=== PATIENT | female | born 1965 | race African-American/Black ===

== ENCOUNTER 2018-10-24 13:59 | Inpatient (IN) ==
[2018-10-24 15:26] LABS: BASO# 0.02 X1000 (0.0-0.2); BASO% 0.4 % (0.0-0.8); EOS% 3.7 % (0.0-10.0); HEMATOCRIT 33.7 % (37.0-47.0); HEMOGLOBIN 11.6 g/dL (12.0-16.0); LYMPH# 1.86 X1000 (1.2-3.4); LYMPH% 34.1 % (20.5-51.1); MCH 29.8 PG (27-31); MCHC 34.4 g/dL (33-37); MCV 86.6 FL (81-99); MONO% 7.3 % (1.7-9.3); MPV 9.6 FL (7.4-10.4); NEUT# 2.97 X1000 (1.4-6.5); NEUT% 54.5 % (42.2-75.2); PLT 226 X1000 (130-400); RBC 3.89 XMIL (4.2-5.4); RDW 14.3 % (11.5-14.5); WBC 5.45 X1000 (4.8-10.8)
[2018-10-24 15:51] LABS: AGAP 10; ALB/GLOB RATIO 1.5; ALBUMIN 4.1 g/dL (3.5-5.0); ALKALINE PHOSPHATASE 72 U/L (32-104); BUN 14 mg/dL (8-22); CALCIUM 9.1 mg/dL (8.8-10.2); CHLORIDE 104 mmol/L (98-107); COSMO 274; CREATININE 0.6 mg/dL (0.5-0.9); ESTIMATED GFR > 60; GLUCOSE 93 mg/dL (70-104); GOT 16 U/L (10-30); GPT 10 U/L (10-36); POTASSIUM 3.6 mmol/L (3.5-5.1); SODIUM 137 mmol/L (136-145); TCO2 23 mmol/L (25-35); TOTAL BILIRUBIN 0.28 mg/dL (0.20-1.00); TOTAL PROTEIN 6.9 g/dL (6.3-8.3)
[2018-10-24] MEDS: NS 1,000 ML IV SCH (20:00)
[2018-10-24 20:49] LABS: BASO# 0.02 X1000 (0.0-0.2); BASO% 0.4 % (0.0-0.8); HEMATOCRIT 32.8 % (37.0-47.0); HEMOGLOBIN 11.3 g/dL (12.0-16.0); LYMPH# 2.02 X1000 (1.2-3.4); LYMPH% 40.9 % (20.5-51.1); MCH 30.1 PG (27-31); MCHC 34.5 g/dL (33-37); MCV 87.2 FL (81-99); MONO# 0.39 X1000 (0.11-0.59); MONO% 7.9 % (1.7-9.3); MPV 9.4 FL (7.4-10.4); NEUT# 2.31 X1000 (1.4-6.5); NEUT% 46.8 % (42.2-75.2); PLT 213 X1000 (130-400); RBC 3.76 XMIL (4.2-5.4); RDW 14.3 % (11.5-14.5); WBC 4.94 X1000 (4.8-10.8)
--- NOTE | 2018-10-24 21:41 | Diag Imaging Result Doc PS360 ---
EXAM: CT ABD/PELVIS W/IV CONT ONLY INDICATION: Abdominal pain TECHNIQUE: This exam was performed using automated exposure control, adjustment of mA or kV according to patient size, and/or use of iterative reconstruction technique. COMPARISON: None. FINDINGS: There is minimal subsegmental atelectasis at the lung bases. The liver, gallbladder, spleen, pancreas, and adrenal glands are essentially unremarkable. There is a simple appearing cyst near the upper pole of the left kidney. The kidneys are unremarkable, otherwise. The urinary bladder is unremarkable. The reproductive tract is unremarkable as imaged. There is no evidence of appendicitis. There is no evidence of focal bowel wall thickening or bowel obstruction. The remainder of the GI tract is essentially unremarkable. No focal inflammatory changes, free abdominal gas, or free fluid is identified. There are severe degenerative changes at the right hip and there is milder lumbar spondylosis. There is no evidence of acute osseous abnormality. IMPRESSION: Incidental/nonacute findings detailed above. No definite acute pathology by CT. Electronically signed by Je Christy 10/24/2018 9:39 PM
--- NOTE | 2018-10-24 21:53 | HISTORY AND PHYSICAL ---
CHIEF COMPLAINT: Passing bleeding per rectum, a couple of times copious amount. HISTORY OF PRESENT ILLNESS: She is a 53-year-old female, was seen in my office this morning with bleeding per rectum. The patient had a prior history of back pain for evaluation. In the meantime, she started having hematochezia. Initial workup as an outpatient. She had a second episode of bleeding at home, and has been referred to Dr. Schmitz. She continues to have bleeding. Admitted directly for lower GI bleeding. The patient denies any dizziness or abdominal pain. PAST MEDICAL HISTORY: 1. Metabolic syndrome. 2. Pes planus. 3. Hypertension. 4. C5-C6 spondylosis. 5. Vitamin D deficiency. 6. Herniated disk on the right side. 7. Internal hemorrhoids. 8. Diverticulosis. PAST SURGICAL HISTORY: Right rotator cuff repair, tubal ligation. MEDICATIONS: Amlodipine 5 mg daily; Flexeril 10 daily; vitamin D 50,000 once a week; sulindac; Medrol Dosepak. Flexeril was given for chronic pain. ALLERGIES: Penicillin, and angioedema to SALOME inhibitors. SOCIAL HISTORY: , one child. Working at [employer]. Living in [place]. No smoking. No alcohol. FAMILY HISTORY: Father of CA at 72, mother of CA at 64. Brother had aneurysm of the brain. HEALTH MAINTENANCE: Influenza vaccine declined. Mammography 08/2018. DEXA scan 08/2015. Pap smear 09/2013. The patient had been seen by Dr. Evans, did 07/2017 colonoscopy with diverticulosis, internal hemorrhoids, 2 benign polyps. EGD has hiatal hernia with ulcers. REVIEW OF SYSTEMS: No dizziness. No headache. No vision problem. No earache. No sore throat. Neck: No goiter. No lymphadenopathy. No bruit.Cardiopulmonary: No chest pain, shortness of breath, PND or orthopnea. History of chronic neck pain. GI: No belly pain. Bleeding per rectum, painless bleeding. No swelling of feet. Chronic back pain. Neurologic: No focal symptoms or weakness. PHYSICAL EXAMINATION: GENERAL: Five feet 5 inches, 168 pounds. VITAL SIGNS: Temperature is 97.5 degrees, pulse 82, blood pressure 132/83. HEENT: Atraumatic, normocephalic. Dusky conjunctivae. TMs are normal. Nose and throat within normal limits. NECK: Supple. No lymphadenopathy. No goiter. CHEST: Bilateral air entry. HEART: Sounds are regular. ABDOMEN: Belly is soft, nontender. Good bowel sounds. No signs of peritonitis. EXTREMITIES: No peripheral edema or cyanosis. NEUROLOGIC: No obvious neurological deficits. LABORATORY DATA: CBC: White cell count 4.9, hematocrit 32.8, platelets 213,000. Sodium 137, potassium 3.6, chloride 104, BUN 14, creatinine 0.6, glucose 93. LFTs were normal. ASSESSMENT: A 53-year-old female admitted to the hospital with lower gastrointestinal bleeding. Previous esophagogastroduodenoscopy and colonoscopy have shown hiatal hernia, internal hemorrhoids and diverticulosis. PLAN: Serial hematocrit, orthostatic blood pressure. CT scan of the abdomen and pelvis. IV Nexium, and watch the symptoms and signs of GI bleeding. We will hold the NSAIDs, aspirin. GI consult technical agronomist with Dr. Evans. Will follow up. cc: Mayank Marcano MD
[2018-10-25] MEDS: NEXIUM IV SCH ×3 (05:05→21:47)
[2018-10-25 06:46] LABS: BASO# 0.01 X1000 (0.0-0.2); BASO% 0.3 % (0.0-0.8); EOS# 0.19 X1000 (0.0-0.7); EOS% 4.8 % (0.0-10.0); HEMATOCRIT 28.9 % (37.0-47.0); HEMOGLOBIN 9.9 g/dL (12.0-16.0); LYMPH# 1.77 X1000 (1.2-3.4); MCH 29.9 PG (27-31); MCHC 34.3 g/dL (33-37); MCV 87.3 FL (81-99); MONO% 10.2 % (1.7-9.3); MPV 10.1 FL (7.4-10.4); NEUT# 1.56 X1000 (1.4-6.5); NEUT% 39.7 % (42.2-75.2); PLT 222 X1000 (130-400); RBC 3.31 XMIL (4.2-5.4); RDW 14.1 % (11.5-14.5); WBC 3.93 X1000 (4.8-10.8)
[2018-10-25] MEDS ORDERED: NS 500 ML IV ONE (08:35)
[2018-10-25] MEDS: SODIUM CHLORIDE 0.9% INJ SCH ×2 (09:16→21:47)
[2018-10-25] MEDS ORDERED: GOLYTELY PO ONE (14:00)
[2018-10-25] MEDS: NS 1,000 ML IV SCH (16:30)
--- NOTE | 2018-10-25 20:02 | GASTROENTEROLOGY CONSULTATION ---
DATE: 10/25/2018 REASON FOR CONSULTATION: Hematochezia. HISTORY OF PRESENT ILLNESS: Ms. Pau Christy is a 53-year-old woman with past medical history of hypertension, peptic ulcer disease diagnosed on 07/20/2017, Helicobacter pylori infection, diverticulosis, hemorrhoids and benign hyperplastic colon polyps, chronic back pain, who presented to Dr. Schmitz's office yesterday after having 1 episode of acute rectal bleeding with dark red blood. She reports not having any other associated symptoms except for fatigue. No dizziness, lightheadedness, chest pain, shortness of breath, abdominal pain, nausea, vomiting, melena. She does have chronic back pain for which she was receiving Sulindac which was discontinued after seeing Dr. Marcano yesterday morning. After being seen in our office she had several more episodes of rectal bleeding with dark red blood. She describes having at least 5 episodes since being hospitalized. Hemoglobin drawn yesterday was approximately 13. On presentation here, it dropped to 11.6 and 9.9 this morning. Currently, she denies any symptoms except for fatigue. Her last bloody bowel movement was last overnight. She is currently tolerating a clear liquid diet and is on PPI with Nexium 40 mg b.i.d. Her last colonoscopy was in July 2017. PAST MEDICAL HISTORY: As per HPI. PAST SURGICAL HISTORY: She has had a rotator cuff repair and tubal ligation. MEDICATIONS: She is on amlodipine, Flexeril, vitamin D. ALLERGIES: Penicillin and SALOME inhibitors. SOCIAL HISTORY: She is a smoker. Drinks alcohol occasionally. No drug use. FAMILY HISTORY: No family history of GI malignancies. REVIEW OF SYSTEMS: As per HPI, otherwise 12 point review of systems is negative. PHYSICAL EXAMINATION: Vital Signs: Temperature 97.7 degrees, heart rate of 99, respiratory rate 18, blood pressure 125/88, O2 saturation 100% on room air. General: Patient is awake, alert, oriented, no acute distress. Well-nourished, well-developed. HEENT: Sclerae anicteric. Moist mucous membranes. Extraocular motor intact. Neck: Supple. No JVD or lymphadenopathy. Cardiac: Regular rate and rhythm. No murmurs, rubs, or gallops. Lungs: Clear to auscultation bilaterally. Abdomen: Soft, nontender, nondistended. Normoactive bowel sounds. No rebound or guarding. Extremities: No clubbing, cyanosis, or edema. Neurologic: Nonfocal. LABORATORY DATA: White count of 3.9, hemoglobin 9.9, platelets of 222,000. Sodium 137, potassium 3.6, chloride 104, bicarbonate 23, BUN of 14, creatinine 0.6, glucose of 93, total bilirubin 0.28, AST of 16, ALT of 10, alkaline phosphatase 72, total protein 6.9, albumin 4.1. CT of the abdomen and pelvis shows no acute abnormalities. ASSESSMENT AND PLAN: Ms. Pau Christy is a 53-year-old woman with a history of Helicobacter pylori, peptic ulcer disease, diverticulosis, hemorrhoids, benign colonic polyps, and chronic back pain who was recently treated with Sulindac who noted lack and now presents with acute lower GI bleeding, likely diverticular in origin. Her hemoglobin as an outpatient was 13, is down to 9.9. She is hemodynamically stable on PPI IV b.i.d. and tolerating clear liquids. Her abdomen is benign. She denies any other symptoms besides fatigue. We will plan to prep her with 4 L of GoLYTELY today to clear out her colon. If her stools do not clear or she starts having worsening rectal bleeding after the prep, then we will plan for diagnostic colonoscopy. 80 to 90 percent of lower GI bleeding from diverticular bleed resolves was supportive care. This is unlikely to be a brisk upper GI bleeding episode given her hemodynamic stability and normal BUN and creatinine ratio. For her anemia, we will continue to trend her hemoglobin and hematocrit daily. Transfuse as needed to maintain hemoglobin between 7 and 8. We will hold any blood thinners including aspirin and NSAIDs. Recommend SCDs for DVT prophylaxis. Maintain 2 large-bore peripheral IVs. The plan was discussed with patient and daughter at the bedside. We will follow with you. # Diverticular bleed # Anemia # History of H pylori # History of PUD Thank you for this consult. cc: Mayank Marcano MD [facility]
--- NOTE | 2018-10-25 20:32 | PROGRESS NOTE ---
DATE: 10/25/2018 SUBJECTIVE: The patient had several episodes of bleeding per rectum. CT scan findings discussed. She looks very pale. OBJECTIVE: Hemodynamics were stable. She is slightly tachycardic upon standing. On physical exam, very pale. Belly is soft, nontender. No neurological deficits. LABORATORY DATA: Hematocrit declined to 28 since ongoing bleeding. Elevated blood pressure; it may not reflect the hematocrit in the next 24 hours. DIAGNOSTIC DATA: CT scan findings discussed, unremarkable. ASSESSMENT AND PLAN: 1. Lower gastrointestinal bleeding. Plan of care: Transfuse 1 unit of packed red blood cells. 2. Closely monitoring symptoms and signs of bleeding. Previous colonoscopy is negative. CT findings reassuring. Repeat the CBC in the morning. Consulted Dr. Evans and will follow up. Level of documentation 25 minutes. cc: Mayank Marcano MD
[2018-10-26 06:05] LABS: BASO# 0.01 X1000 (0.0-0.2); BASO% 0.2 % (0.0-0.8); EOS# 0.12 X1000 (0.0-0.7); EOS% 2.9 % (0.0-10.0); HEMATOCRIT 28.6 % (37.0-47.0); HEMOGLOBIN 9.7 g/dL (12.0-16.0); LYMPH# 1.71 X1000 (1.2-3.4); LYMPH% 40.8 % (20.5-51.1); MCHC 33.9 g/dL (33-37); MCV 85.6 FL (81-99); MONO# 0.31 X1000 (0.11-0.59); MONO% 7.4 % (1.7-9.3); MPV 9.8 FL (7.4-10.4); NEUT# 2.04 X1000 (1.4-6.5); NEUT% 48.7 % (42.2-75.2); PLT 192 X1000 (130-400); RBC 3.34 XMIL (4.2-5.4); RDW 15.2 % (11.5-14.5); WBC 4.19 X1000 (4.8-10.8)
[2018-10-26] MEDS: SODIUM CHLORIDE 0.9% INJ SCH ×2 (09:07→21:40)
[2018-10-26] MEDS: NEXIUM IV SCH ×2 (09:07→21:40)
--- NOTE | 2018-10-26 18:15 | PROGRESS NOTE ---
DATE: 10/26/2018 SUBJECTIVE: The patient did receive 1 unit of packed RBC and stool is clear. No complaints. OBJECTIVE: Temperature is 98 degrees, pulse 98, vitals are stable.HEENT: Slightly pale. Chest: Clear to auscultation. Heart sounds are regular. Belly is soft, nontender. Good bowel sounds. No obvious neurological deficits. INVESTIGATIONS: Hemoglobin 9.6, hematocrit 38. ASSESSMENT AND PLAN: Lower gastrointestinal bleeding, most likely diverticular in light of previous colonoscopy and CT findings, are reassuring. Continue to monitor CBC in the morning, orthostatics. If she is stable, will discharge, and slowly reconcile home medicines. No NSAIDs for the time being. cc: Mayank Marcano MD
[2018-10-26] MEDS: NS 1,000 ML IV SCH (19:14)
--- NOTE | 2018-10-26 23:53 | PROVIDER PROGRESS NOTE ---
Progress Note S: No acute overnight events. Patient completed bowel prep with clear liquid stools this AM. No rectal bleeding. She denies complains. NPO O: Last Vital Signs Temp 97.5 F L 10/26/18 23:30 Pulse 85 10/26/18 23:30 Resp 18 10/26/18 23:30 BP 124/84 10/26/18 23:30 Pulse Ox 100 10/26/18 23:30 Height 5 ft 5 in Weight 168 lb GEN: awake, alert, NAD HEENT: anicteric, MMM NECK: supple, no jvd PULM: CTAB, no wheezing CV: RRR, no murmurs ABD: soft NT/ND, NABS EXT: no cce NEURO: nonfocal LABS: 10/26/18 05:50 WBC 4.19 L Hgb 9.7 L Plt Count 192 ASSESSMENT AND PLAN: Ms. Pau Christy is a 53-year-old woman with a history of Helicobacter pylori, peptic ulcer disease, diverticulosis, hemorrhoids, benign colonic polyps, and chronic back pain who was recently treated with Sulindac who noted lack and now presents with acute lower GI bleeding, likely diverticular in origin. Hgb stabilized. Bowel movement clear after bowel prep. Will advance diet as tolerated. # Diverticular bleed: trending H/H; holding NSAIDs/blood thinners; rechecked hgb at 2pm and was stable; advanced diet as tolerated # Anemia: from above # History of H pylori PUD: continue PPI BID; she will need outpatient urea breath test to confirm eradication Will follow with you. Please call with questions.
[2018-10-27 06:41] LABS: BASO# 0.01 X1000 (0.0-0.2); BASO% 0.3 % (0.0-0.8); EOS# 0.13 X1000 (0.0-0.7); EOS% 3.4 % (0.0-10.0); HEMATOCRIT 26.7 % (37.0-47.0); HEMOGLOBIN 8.9 g/dL (12.0-16.0); LYMPH# 1.57 X1000 (1.2-3.4); LYMPH% 41.3 % (20.5-51.1); MCH 28.7 PG (27-31); MCHC 33.3 g/dL (33-37); MCV 86.1 FL (81-99); MONO# 0.35 X1000 (0.11-0.59); MONO% 9.2 % (1.7-9.3); MPV 9.8 FL (7.4-10.4); NEUT# 1.74 X1000 (1.4-6.5); NEUT% 45.8 % (42.2-75.2); PLT 213 X1000 (130-400); RDW 14.7 % (11.5-14.5)
[2018-10-27] MEDS: ZOFRAN ODT PO PRN (08:52)
[2018-10-27] MEDS: SODIUM CHLORIDE 0.9% INJ SCH (08:52)
[2018-10-27] MEDS: NEXIUM IV SCH (08:53)
--- NOTE | 2018-10-27 11:27 | PROGRESS NOTE ---
DATE: 10/27/2018 SUBJECTIVE: The patient says she is feeling better. She still had a little bit of tenderness in her abdomen that hits every once in a while. She has had no more bloody diarrhea. Hemoglobin did drop from 11.3 down to 9.9 to 9.6, and today 8.9. OBJECTIVE: Vital Signs: Blood pressure 122/87, respirations 18, pulse 94, temperature 97.8 degrees Fahrenheit. HEENT: She is normocephalic. EOMs intact. PERRLA. Throat clear. Lungs: Clear to auscultation and percussion without rhonchi, rales, or wheezes. Heart: Regular rate and rhythm without murmurs, gallops, or friction rubs. Abdomen: Soft, with no organomegaly or tenderness at this time. Neurological: Examination: Intact grossly. ASSESSMENT: Lower gastrointestinal bleed. PLAN: We will follow today and see what her hemoglobin is in the morning. If stable and no more bleeding, then Dr. Marcano can decide when she may be able to go home. She did have bloody diarrhea just yesterday. cc: MD Mayank Obrien Jr, MD
[2018-10-27] MEDS ORDERED: GOLYTELY PO ONE (19:53)
--- NOTE | 2018-10-27 21:56 | PROVIDER PROGRESS NOTE ---
Progress Note S: No acute overnight events. No BM since yesterday. Tolerating PO. No N/V/F, CP, SOB, abdominal pain. Per RN, patient had BRBPR this evening with BM. O: Last Vital Signs Temp 97.8 F 10/27/18 20:35 Pulse 88 10/27/18 20:35 Resp 20 10/27/18 20:35 BP 137/84 10/27/18 20:35 Pulse Ox 100 10/27/18 20:35 Height 5 ft 5 in Weight 168 lb GEN: awake, alert, NAD HEENT: anicteric, MMM NECK: supple, no jvd PULM: CTAB, no wheezing CV: RRR, no murmurs ABD: soft NT/ND, NABS EXT: no cce NEURO: nonfocal LABS: 10/27/18 05:50 WBC 3.80 L Hgb 8.9 L Plt Count 213 ASSESSMENT AND PLAN: Ms. Pau Christy is a 53-year-old woman with a history of Helicobacter pylori, peptic ulcer disease, diverticulosis, hemorrhoids, benign colonic polyps, and chronic back pain who was recently treated with Sulindac who noted lack and now presents with acute lower GI bleeding, likely diverticular in origin. Hgb stabilized. Bowel movement clear after bowel prep. Will advance diet as tolerated. # Diverticular bleed: hgb developed BRBPR this evening; will prep again with golytely for colonoscopy with Dr. Evans tomorrow, NPO after MN # Anemia: from above; trending H/H, transfuse prn goal hgb 7-8 # History of H pylori PUD: continue PPI BID; she will need outpatient urea breath test to confirm eradication Will follow with you. Please call with questions.
[2018-10-28] MEDS: NEXIUM IV SCH ×3 (03:43→22:27)
[2018-10-28 06:39] LABS: BASO# 0.02 X1000 (0.0-0.2); BASO% 0.4 % (0.0-0.8); EOS# 0.22 X1000 (0.0-0.7); EOS% 4.6 % (0.0-10.0); HEMATOCRIT 27.6 % (37.0-47.0); HEMOGLOBIN 9.3 g/dL (12.0-16.0); LYMPH# 2.22 X1000 (1.2-3.4); LYMPH% 46.5 % (20.5-51.1); MCH 29.2 PG (27-31); MCHC 33.7 g/dL (33-37); MCV 86.8 FL (81-99); MONO# 0.41 X1000 (0.11-0.59); MONO% 8.6 % (1.7-9.3); MPV 9.9 FL (7.4-10.4); NEUT% 39.9 % (42.2-75.2); PLT 235 X1000 (130-400); RBC 3.18 XMIL (4.2-5.4); RDW 14.5 % (11.5-14.5); WBC 4.77 X1000 (4.8-10.8)
[2018-10-28] MEDS ORDERED: DIPRIVAN 1% ONE ×2 (07:10→07:11)
[2018-10-28] MEDS ORDERED: XYLOCAINE-MPF 2% ONE (07:11)
[2018-10-28] MEDS ORDERED: FENTANYL ONE (07:12)
[2018-10-28] MEDS ORDERED: INJECTAFER 750 MG in NS 250 ML IV ONE (08:02)
[2018-10-28] MEDS ORDERED: VERSED ONE (08:54)
--- NOTE | 2018-10-28 09:45 | ENDOSCOPY OPERATIVE NOTE ---
[facility] ENDOSCOPY OPERATIVE NOTE , PATIENT: Pau Christy ADM DATE: MR #: [id number] : 1965 COLONOSCOPY PROCEDURE REPORT PROCEDURE DATE: 10/28/2018 SURGEON: Marcelino Evans MD STATUS: inpatient LONG TERM CARE PHARMACIST: Randall Waggoner PREOPERATIVE DIAGNOSIS: The patient is a 53 yr old female here for a colonoscopy due to rectal bleed ing. PROCEDURE PERFORMED: Colonoscopy, diagnostic MEDICATIONS: Per Anesthesia PREP TYPE: GoLytely
[2018-10-28 10:58] LABS: HEMATOCRIT 20.9 % (37.0-47.0); HEMOGLOBIN 6.9 g/dL (12.0-16.0); MCH 29.9 PG (27-31); MCV 90.5 FL (81-99); MPV 9.7 FL (7.4-10.4); RBC 2.31 XMIL (4.2-5.4); RDW 14.6 % (11.5-14.5); WBC 5.87 X1000 (4.8-10.8)
[2018-10-28] MEDS: SODIUM CHLORIDE 0.9% INJ SCH ×2 (11:07→22:27)
[2018-10-28] MEDS: NS 1,000 ML IV SCH (11:07)
[2018-10-28] MEDS ORDERED: NS 500 ML IV SCH (13:00)
[2018-10-28] MEDS ORDERED: NS 500 ML IV ONE (15:37)
[2018-10-28 18:45] LABS: HEMOGLOBIN 8.5 g/dL (12.0-16.0); MCH 30.4 PG (27-31); MCHC 35.4 g/dL (33-37); MCV 85.7 FL (81-99); MPV 9.7 FL (7.4-10.4); RBC 2.8 XMIL (4.2-5.4); RDW 13.8 % (11.5-14.5); WBC 5.12 X1000 (4.8-10.8)
[2018-10-28 22:27] LABS: HEMATOCRIT 25.8 % (37.0-47.0); HEMOGLOBIN 8.8 g/dL (12.0-16.0); MCHC 34.1 g/dL (33-37); MCV 88.1 FL (81-99); MPV 9.6 FL (7.4-10.4); RBC 2.93 XMIL (4.2-5.4); RDW 14.2 % (11.5-14.5); WBC 4.98 X1000 (4.8-10.8)
--- NOTE | 2018-10-29 06:39 | PROGRESS NOTE ---
DATE: 10/28/2018 SUBJECTIVE: The patient had another bout of bleeding per rectum on Sunday. This morning she looks pale. I started on IV Injectafer. Followup on hematocrit 20. Dr. Evans is known to do colonoscopy. OBJECTIVE: Vital signs: Hemodynamics are stable. General: Pale looking. Chest: Clear. Cardiovascular: Heart sounds are regular. Abdomen: Belly is soft and nontender. No signs of peritonitis. Neurological: No obvious neurological deficits. INVESTIGATIONS: CBC: White cell count 5.1, hematocrit 24, platelets 129,000. ASSESSMENT AND PLAN: Lower gastrointestinal bleeding most likely diverticular bleeding and hematocrit down to 20. We will transfuse 2 more units along with IV Injectafer. For followup on colonoscopy findings, we will hold the discharge and also hold the home medicines, continue IV fluids and check the CBC in the morning every q.6 hours. LEVEL OF DOCUMENTATION: 25 minutes. cc: Mayank Marcano MD
[2018-10-29 09:13] LABS: INR 1.16
[2018-10-29 09:14] LABS: PTT 29.4 Seconds (22.3-41.8)
[2018-10-29 09:36] LABS: HEMATOCRIT 30.2 % (37.0-47.0); HEMOGLOBIN 10.4 g/dL (12.0-16.0); MCH 30.2 PG (27-31); MCHC 34.4 g/dL (33-37); MCV 87.8 FL (81-99); MPV 9.6 FL (7.4-10.4); RBC 3.44 XMIL (4.2-5.4); RDW 14.2 % (11.5-14.5); WBC 5.96 X1000 (4.8-10.8)
[2018-10-29] MEDS: NEXIUM IV SCH ×2 (10:59→21:38)
[2018-10-29] MEDS: SODIUM CHLORIDE 0.9% INJ SCH ×2 (10:59→21:38)
[2018-10-29 12:13] LABS: HEMATOCRIT 27.7 % (37.0-47.0); HEMOGLOBIN 9.5 g/dL (12.0-16.0); MCH 31.1 PG (27-31); MCHC 34.3 g/dL (33-37); MCV 90.8 FL (81-99); MPV 9.6 FL (7.4-10.4); RBC 3.05 XMIL (4.2-5.4); RDW 14.3 % (11.5-14.5); WBC 6.97 X1000 (4.8-10.8)
--- NOTE | 2018-10-29 14:09 | Diag Imaging Result Doc PS360 ---
EXAM: GI BLEED INDICATION: GI bleed TECHNIQUE: 22.1 mCi of technetium pertechnetate and 3 mL of cold PYP was used for red blood cell tagging. COMPARISON: None. FINDINGS: There is progressive accumulation of radiotracer in the urinary bladder as the study progresses. There is normal activity associated with the liver and heart. There is colonic activity that appears to originate at or just proximal to the splenic flexure that suggest a site of active bleeding. It measures slightly over time with peristalsis. No other abnormal bowel activity is appreciated. IMPRESSION: Abnormal colonic activity that appears to originate at or just proximal to the splenic flexure suggesting a site of active bleeding. Electronically signed by Je Christy 10/29/2018 2:06 PM
[2018-10-29] MEDS: NS 1,000 ML IV SCH ×2 (17:36→18:10)
--- NOTE | 2018-10-29 21:06 | PROGRESS NOTE ---
DATE: 10/29/2018 SUBJECTIVE: Patient still bleeding net web developer. Few bouts of bleeding noted. Colonoscopy findings were reassuring. No abdominal pain. Patient so far received 4 units of packed RBC, 1 unit of iron infusion. OBJECTIVE: General: On exam, she is tachycardic. Hemodynamics are stable. Slightly pale. Chest: Clear. Heart: Sounds are regular. Abdomen: Belly is soft, nontender. Good bowel sounds. No signs of peritonitis. LABORATORY DATA: CBC: White cell count is 6.9, hematocrit 27. PT/INR, PTT are normal. Bleeding scan is positive with bleeding coming from the splenic flexure proximal. ASSESSMENT AND PLAN: Lower gastrointestinal bleeding due to diverticular bleeding. Positive bleeding scan. Endoscopy was negative. If she continues to bleed, consider surgical consult and closely monitoring. Will transfuse as needed. Continue intravenous fluids. Follow up on PT, PTT were normal. The patient has been off all the blood thinners. Continue intravenous Nexium and will follow up. LEVEL OF DOCUMENTATION: 25 minutes. cc: Mayank Marcano MD
--- NOTE | 2018-10-29 23:40 | PROVIDER PROGRESS NOTE ---
Progress Note S: Patient continues to have reveal bleeding with dark blood. She reports cramping lower abdominal pain. No vomiting. afebrile. No SOB O: Last Vital Signs Temp 98.4 F 10/29/18 20:00 Pulse 114 H 10/29/18 20:00 Resp 16 10/29/18 20:00 BP 119/93 10/29/18 20:00 Pulse Ox 100 10/29/18 20:00 Height 5 ft 5 in Weight 168 lb GEN: awake, alert, NAD HEENT: anicteric, MMM NECK: supple, no jvd PULM: CTAB, no wheezing CV: RRR, no murmurs ABD: soft NT/ND, NABS EXT: no cce NEURO: nonfocal LABS: 10/29/18 10/29/18 08:30 08:46 WBC 5.96 Hgb 10.4 L D Plt Count 175 INR 1.16 TAGGED RBC SCAN 10/29 EXAM: GI BLEED INDICATION: GI bleed TECHNIQUE: 22.1 mCi of technetium pertechnetate and 3 mL of cold PYP was used for red blood cell tagging. COMPARISON: None. FINDINGS: There is progressive accumulation of radiotracer in the urinary bladder as the study progresses. There is normal activity associated with the liver and heart. There is colonic activity that appears to originate at or just proximal to the splenic flexure that suggest a site of active bleeding. It measures slightly over time with peristalsis. No other abnormal bowel activity is appreciated. IMPRESSION: Abnormal colonic activity that appears to originate at or just proximal to the splenic flexure suggesting a site of active bleeding. COLON 10/29 COLON FINDINGS: There was mild non-bleeding diverticulosis noted in the ascending colon. There was moderate non-bleeding diverticulosis noted in the descending colon and sigmoid colon. Small internal Grade I hemorrhoids were found. Old Blood with clots found throughout the colon; Lavaged; Likely diverticular bleeding. Normal Terminal Ileum. Retroflexed views revealed internal Grade I first degree hemorrhoids. The scope was then completely withdrawn from the patient and the procedure terminated. ASSESSMENT AND PLAN: Ms. Pau Christy is a 53-year-old woman with a history of Helicobacter pylori, peptic ulcer disease, diverticulosis, hemorrhoids, benign colonic polyps, and chronic back pain who presents with acute diverticular bleed with positive bleeding scan showing activity just proximal to the splenic flexure. # Diverticular bleed: trending H/H, keep NPO, IVFs, transfuse prn for goal hgb 7-8; consider surgical consultation vs. transfer to [facility] for CT angiography and embolization. # Anemia: from above; trending H/H, transfuse prn goal hgb 7-8 # History of H pylori PUD: continue PPI BID; she will need outpatient urea breath test to confirm eradication as outpatient Will follow with you. Please call with questions.
[2018-10-30] MEDS: NS 1,000 ML IV SCH ×3 (02:25→23:34)
[2018-10-30] MEDS ORDERED: NS 500 ML IV ONE (08:15)
[2018-10-30] MEDS ORDERED: GOLYTELY PO ONE ×2 (08:54→14:00)
[2018-10-30] MEDS: NEXIUM IV SCH ×2 (09:10→21:39)
[2018-10-30 09:18] LABS: HEMOGLOBIN 7.4 g/dL (12.0-16.0)
[2018-10-30] MEDS ORDERED: DIPRIVAN 1% ONE ×2 (13:08→15:15)
[2018-10-30 13:39] LABS: HEMATOCRIT 24.2 % (37.0-47.0); HEMOGLOBIN 8.1 g/dL (12.0-16.0)
--- NOTE | 2018-10-30 15:44 | ENDOSCOPY OPERATIVE NOTE ---
[facility] ENDOSCOPY OPERATIVE NOTE , PATIENT: Pau Christy ADM DATE: 10/30/2018 MR #: [id number] : 1965 COLONOSCOPY PROCEDURE REPORT PROCEDURE DATE: 10/30/2018 SURGEON: Phillip Schmitz MD STATUS: inpatient E [employer]ER[facility] SPECIALIST: PREOPERATIVE DIAGNOSIS: The patient is a 53 yr old female here for a colonoscopy due to hematochezia . PROCEDURE PERFORMED: Colonoscopy, diagnostic MEDICATIONS: Per Anesthesia PREP TYPE: GoLytely
--- NOTE | 2018-10-30 20:23 | GENERAL SURGERY CONSULTATION ---
DATE: 10/30/2018 HISTORY OF PRESENT ILLNESS: Ms. Christy is a pleasant 53-year-old female who presents with bright red blood per rectum. She has required 4 units of packed cells and a unit of iron infusion because of her bleeding. Bleeding scan suggested point of bleeding in the distal transverse colon or splenic flexure. However, the bleeding has stopped today and she has had bowel movements that are clear. She underwent a repeat colonoscopy this afternoon by Dr. Schmitz and showed no active bleeding whatsoever. PAST MEDICAL HISTORY: Her past history is pertinent for metabolic syndrome, hypertension, C5-C6 spondylosis, vitamin D deficiency, internal hemorrhoids and diverticulosis. PAST SURGICAL HISTORY: Previous surgery includes a right rotator cuff repair and a tubal ligation. USUAL MEDICATIONS AT HOME INCLUDE: Amlodipine, Flexeril, vitamin D, Sulindac, Medrol Dosepak and Flexeril. ALLERGIES: She has allergies to penicillin and Redd inhibitors. SOCIAL HISTORY: She is with 1 child. Works at the [employer]. Lives in [place]. She does not smoke or drink alcohol. FAMILY HISTORY: Pertinent for ischemic heart disease. REVIEW OF SYSTEMS: Negative in every subsystem, except for the GI tract where she has some bleeding as noted above. PHYSICAL EXAMINATION: Vital Signs: She is afebrile. Heart rate 100, blood pressure 143/77, respiratory rate 16. Lymphatics: No cervical adenopathy. Lungs: Bilateral breath sounds. Heart: Regular rate and rhythm. Abdomen: Soft and nontender. Extremities: No peripheral edema. Neurologic: She is awake and alert. LABORATORY DATA: Hemoglobin today 8.1, hematocrit 24.2. ASSESSMENT: Lower gastrointestinal bleed probably diverticular in origin, but currently she shows no evidence of bleeding per her most recent colonoscopy which was this afternoon. We will continue to follow along. No intervention is currently indicated. cc: MD Mayank [place] MD
--- NOTE | 2018-10-30 21:36 | PROGRESS NOTE ---
DATE: 10/30/2018 SUBJECTIVE: Interval history was reviewed. I spent 4 times with the family this whole day. Apparently she is still actively bleeding. Hematocrit was 24. I ordered another unit of blood. Discussed with Dr. Schmitz, who did a repeat colonoscopy and he looked very closely at the splenic flexure. He could not see this part of the bleeding. He cleaned the whole colon pretty good. Family is very anxious. I appreciated Dr. Aguilar's consult. OBJECTIVE: On examination, temperature is 98 degrees. Vital signs are stable. She is getting IV fluids. Chest is clear. Heart sounds are regular. Belly is soft, nontender. LABORATORY DATA: Hematocrit was 24. ASSESSMENT AND PLAN: Diverticular bleeding, left colon. Unable to pin down, status post 5 units of packed red blood cells. Off anticoagulation. Hematological support. Transfuse 2 units of packed red blood cells as needed. Other options discussed. I appreciate Dr. Aguilar's consult. If it uncontrolled, the patient needs surgical resection followed by CT embolization with interventional radiologist. We will follow up. Level of documentation 35 minutes. cc: Mayank Marcano MD
[2018-10-30] MEDS: SODIUM CHLORIDE 0.9% INJ SCH (21:39)
[2018-10-30 21:43] LABS: BASO# 0.01 X1000 (0.0-0.2); BASO% 0.1 % (0.0-0.8); EOS# 0.15 X1000 (0.0-0.7); EOS% 2.1 % (0.0-10.0); HEMATOCRIT 21.5 % (37.0-47.0); HEMOGLOBIN 7.2 g/dL (12.0-16.0); IMM GRAN# 0.02 X1000 (0.0-0.04); IMM GRAN% 0.3 % (0.0-0.5); LYMPH# 1.33 X1000 (1.2-3.4); LYMPH% 18.7 % (20.5-51.1); MCH 29.9 PG (27-31); MCHC 33.5 g/dL (33-37); MCV 89.2 FL (81-99); MONO# 0.55 X1000 (0.11-0.59); MONO% 7.7 % (1.7-9.3); MPV 9.5 FL (7.4-10.4); NEUT# 5.06 X1000 (1.4-6.5); NEUT% 71.1 % (42.2-75.2); PLT 174 X1000 (130-400); RBC 2.41 XMIL (4.2-5.4); WBC 7.12 X1000 (4.8-10.8)
[2018-10-31] MEDS: ZOFRAN ODT PO PRN (00:26)
[2018-10-31] MEDS: ZOFRAN IV PRN (00:34)
[2018-10-31] MEDS: NS 1,000 ML IV SCH ×4 (01:28→23:12)
--- NOTE | 2018-10-31 03:27 | GENERAL SURGERY PROGRESS NOTE ---
DATE: 10/30/2018 SUBJECTIVE: I was called this evening after she had a bleeding episode in the bed and diaphoresis. She was transferred to the ICU at my request. She has been hemodynamically stable. Her hematocrit was 21 this evening, which is overall stable for her. She did have a transfusion earlier this morning, responded from 22 to 24, and is back down to 21. She had endoscopy this afternoon that showed old blood but no active bleeding. She is being transfused another unit of packed cells, and I have ordered 2 units of FFP. Her INR was 1.16 yesterday. I am repeating that. OBJECTIVE: General: She is alert. She is conversant. Cardiovascular: Normal rate. Pulmonary: No increased work of breathing. Abdomen: Soft, nontender, nondistended. Integument: Warm and dry, nondiaphoretic. ASSESSMENT AND PLAN: A 53-year-old female with nonlocalized lower GI bleed, mostly diverticular in origin. She has had blood throughout her colon. If she were to require an urgent operation, it would be a total colectomy with end ileostomy. I have had a long discussion with the patient's family. They request transfer to [facility] that refused, and [facility] that refused. I do not see an urgent indication for transfer. She is being transfused, we will follow her hematocrits and monitor her closely. If she were to become hemodynamically unstable, we will proceed urgently to the operating room. Otherwise, we will continue current management. I do think it would be beneficial, if she were to continue to have bleeding, to undergo repeat endoscopy to, hopefully, localize the lesion, although I do think ultimately she is going to require total abdominal colectomy. Family seems understanding. We will monitor her closely. cc: MD Mayank Cisse MD
[2018-10-31] MEDS ORDERED: BLISTEX MEDICATED BERRY LIP BALM TOP PRN (03:43)
[2018-10-31 06:35] LABS: EOS# 0.01 X1000 (0.0-0.7); EOS% 0.1 % (0.0-10.0); HEMATOCRIT 21.6 % (37.0-47.0); HEMOGLOBIN 7.4 g/dL (12.0-16.0); IMM GRAN# 0.02 X1000 (0.0-0.04); IMM GRAN% 0.3 % (0.0-0.5); LYMPH# 0.97 X1000 (1.2-3.4); LYMPH% 12.7 % (20.5-51.1); MCH 28.9 PG (27-31); MCHC 34.3 g/dL (33-37); MCV 84.4 FL (81-99); MONO# 0.43 X1000 (0.11-0.59); MONO% 5.6 % (1.7-9.3); MPV 9.6 FL (7.4-10.4); NEUT# 6.19 X1000 (1.4-6.5); NEUT% 81.3 % (42.2-75.2); PLT 115 X1000 (130-400); RBC 2.56 XMIL (4.2-5.4); RDW 14.6 % (11.5-14.5); WBC 7.62 X1000 (4.8-10.8)
[2018-10-31] MEDS ORDERED: VITAMIN K 10 MG in NS 50 ML IV ONE (08:30)
[2018-10-31 08:33] LABS: INR 1.21; PROTIME 15.9 Seconds (11.0-16.0); PTT 27.1 Seconds (22.3-41.8)
[2018-10-31] MEDS: NEXIUM IV SCH ×2 (08:53→20:51)
[2018-10-31] MEDS: SODIUM CHLORIDE 0.9% INJ SCH ×2 (08:53→20:50)
[2018-10-31] MEDS ORDERED: DIPRIVAN 1% ONE (12:22)
[2018-10-31] MEDS ORDERED: XYLOCAINE-MPF 2% ONE (12:22)
[2018-10-31] MEDS ORDERED: QUELICIN (DOSE) ONE (12:22)
[2018-10-31] MEDS ORDERED: MARCAINE 0.5% PF ONE (12:38)
[2018-10-31] MEDS ORDERED: INVANZ 1 GM/NS 1 GM/50 ML IVPB IV ONE (12:45)
[2018-10-31] MEDS ORDERED: OFIRMEV 1000 MG/ISOTONIC SOLN 1,000 MG/100 ML BOTTLE ONE (13:16)
[2018-10-31] MEDS ORDERED: NORCURON ONE (13:59)
[2018-10-31] MEDS ORDERED: ZOFRAN ONE (13:59)
[2018-10-31] MEDS ORDERED: NEOSTIGMINE ONE (14:20)
[2018-10-31] MEDS ORDERED: ROBINUL ONE (14:20)
[2018-10-31] MEDS ORDERED: NEOSPORIN G.U. IRRIGANT ONE (14:49)
[2018-10-31] MEDS ORDERED: INVANZ 1 GM/NS 1 GM/50 ML IVPB IV SCH (16:00)
[2018-10-31] MEDS: DILAUDID IV PRN ×2 (16:00→21:22)
[2018-10-31] MEDS: OFIRMEV 1000 MG/ISOTONIC SOLN 1,000 MG/100 ML BOTTLE IV SCH ×2 (16:35→20:50)
--- NOTE | 2018-10-31 18:01 | GASTROENTEROLOGY PROGRESS NOTE ---
DATE: 10/31/2018 SUBJECTIVE: Patient resting in bed. Her family was at bedside. The patient continues to have active gastrointestinal bleeding. She is so far gotten 10 units of blood. The patient is now evaluated by Dr. Donaldo diez. She will likely go to surgery for possible colectomy today. I have discussed in detail the above findings with the patient and family at bedside, and all questions were answered. PHYSICAL EXAMINATION: Vital Signs: Temperature 98.4 degrees, pulse rate 104, respiratory rate 13, blood pressure 120/90, saturating 98% on room air. Body Weight: 168 pounds, BMI 28.0 kg/m2. General Appearance: Patient is moderately built and moderately nourished, lying in bed, in no acute distress. HEENT: Pale conjunctivae. No icterus. Neck: Supple. Abdomen: Soft, nontender, nondistended. No guarding or rebound. Extremities: No cyanosis or clubbing. Neurological: Alert, awake, oriented x3. DIAGNOSTIC STUDIES: Hemoglobin 7.4, hematocrit 21.6, white count of 7.62, platelet count of 115,000. INR 1.1, PT 15.9, PTT 27.1, glucose 177. Blood culture was negative. IMPRESSION AND PLAN: 1. Bleeding likely diverticular bleeding. She has had 2 colonoscopies done 2 days apart, but we are unable to locate the specific area of bleeding. She had a bleeding scan which showed activity around the splenic flexure. She has been evaluated by Dr. Diez. She will likely go to the OR today for possible colon resection. In the meanwhile, she will continue to be n.p.o. She is on IV fluids. We will transfuse as needed. She has history of peptic ulcer disease so she will continue PPIs b.i.d. 2. History of colon polyps. Aware. 3. Chronic back pain. Aware. 4. Diverticulosis. Aware. Likely the cause of the patient's GI bleeding. We will follow along. The above plan of care was discussed with the patient and family at bedside, and I also spoke with Dr. Diez and Dr. Marcano, and all questions were answered. Please call us with any further questions. cc: MD Mayank Ying MD Robert C. Walker, MD MTDD
[2018-10-31] MEDS: PERIDEX MT SCH (20:50)
--- NOTE | 2018-10-31 21:12 | OPERATIVE NOTE ---
PROCEDURE DATE: 10/31/2018 PROCEDURE: Total abdominal colectomy with ileal rectostomy. SURGEON: Donaldo Aguilar MD. UTILITY HELICOPTER REPAIRER: Lisseth. PREOPERATIVE DIAGNOSIS: Persistent lower gastrointestinal bleeding, presumed diverticular. POSTOPERATIVE DIAGNOSIS: Persistent lower gastrointestinal bleeding, presumed diverticular. INDICATIONS: A 53-year-old lady who has had received about 10 units of blood due to persistent lower GI bleeding. She has been unable to maintain her hemoglobin and she has multiple diverticula. They have never been able to identify the site by 2 colonoscopies. GI nuclear medicine scan suggested possibly proximal to the splenic flexure. DESCRIPTION OF PROCEDURE: Satisfactory general endotracheal anesthesia was achieved. The abdomen was prepped and draped in a sterile fashion. We made a midline incision from the xiphoid down to the pubis. We carried our incision through the subcutaneous tissue through the midline fascia. We entered the abdominal cavity. We then explored the abdomen. We noted multiple diverticula in the descending and sigmoid colon as well as some of the ascending colon. There was blood in the colon itself. No blood was noted within the small bowel. We ran the small bowel and did not identify any Meckel's or leiomyoma or any potential source of bleeding from the small bowel. The stomach felt normal. The gallbladder appeared normal. Duodenal felt normal. We then placed the patient in Trendelenburg. We scored the peritoneum to the left of the sigmoid and carried our peritoneal dissection from caudad to craniad toward the splenic flexure. We then did the same on the right colon from the cecum up toward the hepatic flexure. We then placed the patient in reverse Trendelenburg and then began mobilizing the splenic flexure. We then mobilized the hepatic flexure as well. We then used the LigaSure to take the greater omentum off the transverse colon from left to right. We then went back to the distal sigmoid proximal rectum and divided the colon there with a LESLY 60 blue cartridge. We then scored the peritoneum on the inside of the colon from distal to proximal. We then came back with the ligature and stayed close to the bowel and divided the sigmoid vessels in the left colic. We came to the middle colic and clamped and divided it, ligating it with 2-0 silk free ties. We then continued our dissection proximally using the LigaSure. We did the right colic and then the ileocolic vessels. We then divided the ilium with the LESLY blue cartridge 60 mm long. We handed off the colon. Hemostasis was satisfactory. We then over sewed the staple line of the ileum. We laid the ilium down toward the pelvis toward the rectal stump. We oriented the staple line of the end of the ilium to the right and then constructed the end-to-side anastomosis two layers. We used 3-0 silks in the posterior layer. We then cut off the staple line of the rectum, opened the ileum and then did the inner layer of an end-to-side anastomosis with 3-0 Polysorb running stitch posteriorly changed to a Toño stitch anteriorly. In the final layer, it was interrupted 3-0 silks in a Lembert fashion. This completed the 2 layer end-to-side sewn closure. At this point, we changed gloves. We then irrigated the abdomen with irrigation. We closed the mesentery with interrupted 3-0 silks. We looked in every quadrant. Hemostasis was satisfactory. An NG tube in place. We checked placement and we were satisfied with placement within the stomach. We then proceeded to close the peritoneum with 2-0 chromic. We closed the fascia with running #2 Prolene. We irrigated the subcutaneous tissue with irrigation as well and the skin was closed with bisi. A sterile dressing was applied. She tolerated it well, was sent to the recovery room in satisfactory condition. cc: MD Mayank Birmingham MD
[2018-10-31 22:21] LABS: BASO# 0.01 X1000 (0.0-0.2); BASO% 0.1 % (0.0-0.8); HEMATOCRIT 34.3 % (37.0-47.0); HEMOGLOBIN 11.8 g/dL (12.0-16.0); IMM GRAN# 0.02 X1000 (0.0-0.04); IMM GRAN% 0.2 % (0.0-0.5); MCH 28.9 PG (27-31); MCHC 34.4 g/dL (33-37); MCV 83.9 FL (81-99); MONO# 0.55 X1000 (0.11-0.59); MONO% 5.5 % (1.7-9.3); MPV 9.3 FL (7.4-10.4); NEUT# 8.74 X1000 (1.4-6.5); NEUT% 88.2 % (42.2-75.2); PLT 109 X1000 (130-400); RBC 4.09 XMIL (4.2-5.4); RDW 15.9 % (11.5-14.5); WBC 9.92 X1000 (4.8-10.8)
--- NOTE | 2018-11-01 00:07 | PROGRESS NOTE ---
DATE: 10/31/2018 SUBJECTIVE: This is a level 3 documentation. Care team was called in last night, 9:30. The patient became tachycardic and hypotensive, and she was placed on the bed and declining the hematocrit. Transferred to the ICU. Family called my cell phone twice in the last night around midnight, that the patient wants to be transferred to either [facility] or [facility]. Dr. Lassiter was seeing, and obviously she is hemorrhaging from diverticular bleeding, not able to find the source of the bleeding. She is not improving on conservative management. I made 2 phone calls, one to the [facility]. They are at full capacity. She is on the waiting list when a bed is available. I called [facility]. At this time that they do not have a bed for the last 1 week, and there is no waiting time. We have to call on a daily basis to find a bed, and she has to go to the ICU to [facility]. In the meantime, Dr. Aguilar is on standby. This morning I had a long talk with the patient as well as the family, conference for more than 35 minutes. I explained it is hard to find to get a bed, otherwise she is going to hemorrhage to . Dr. Aguilar is willing to do the surgery if the family is willing to do while she is in this hospital. Finally the family agreed, and she is going to receive 3 units of blood. OBJECTIVE: Still bedridden, pale looking. Chest is clear to auscultation. Heart sounds are regular. Belly is soft, nontender. LABORATORY DATA: CBC: White cell count 7.6, hematocrit 21.6, platelets 115,000. PT/INR is normal. ASSESSMENT AND PLAN: 1. Severe diverticular bleeding. Unable to find source of the bleeding with 2 endoscopies. Bleeding scan is positive. So far she has required 10 units of packed red blood cells, 2 units of fresh frozen plasma and 1 dose of vitamin K. She is off anticoagulation. Finally the family agreed to stay in [facility]. I spoke to Dr. Aguilar on the telephone, and he has agreed to operate this afternoon. We will follow up on his intraoperative findings. 2. The patient has a near-total colectomy followed by ileorectal anastomosis. 3. The patient was seen this evening as well. Hemodynamics were stable. 4. Recheck the labs in the morning. The patient appears to be stable. Nasogastric tube and Lenz were placed. Level of documentation 35 minutes. cc: Mayank Marcano MD
[2018-11-01] MEDS: OFIRMEV 1000 MG/ISOTONIC SOLN 1,000 MG/100 ML BOTTLE IV SCH ×4 (04:22→21:33)
[2018-11-01] MEDS: DILAUDID IV PRN ×5 (04:36→23:25)
[2018-11-01] MEDS: ZOFRAN IV PRN ×2 (04:37→16:43)
[2018-11-01 05:20] LABS: BASO# 0.01 X1000 (0.0-0.2); BASO% 0.1 % (0.0-0.8); EOS# 0.04 X1000 (0.0-0.7); EOS% 0.4 % (0.0-10.0); HEMATOCRIT 33.4 % (37.0-47.0); HEMOGLOBIN 11.6 g/dL (12.0-16.0); LYMPH# 0.88 X1000 (1.2-3.4); LYMPH% 7.7 % (20.5-51.1); MCH 29.9 PG (27-31); MCHC 34.7 g/dL (33-37); MCV 86.1 FL (81-99); MONO# 0.55 X1000 (0.11-0.59); MONO% 4.8 % (1.7-9.3); MPV 9.8 FL (7.4-10.4); NEUT# 9.94 X1000 (1.4-6.5); PLT 117 X1000 (130-400); RBC 3.88 XMIL (4.2-5.4); RDW 16.2 % (11.5-14.5); WBC 11.42 X1000 (4.8-10.8)
[2018-11-01 05:21] LABS: AGAP 12; BUN 3 mg/dL (8-22); CALCIUM 7.4 mg/dL (8.8-10.2); CHLORIDE 106 mmol/L (98-107); COSMO 277; CREATININE 0.4 mg/dL (0.5-0.9); ESTIMATED GFR > 60; GLUCOSE 85 mg/dL (70-104); POTASSIUM 3.2 mmol/L (3.5-5.1); SODIUM 141 mmol/L (136-145); TCO2 23 mmol/L (25-35)
[2018-11-01] MEDS: POTASSIUM CHLORIDE 20 MEQ/SWI 20 MEQ/100 ML IVPB IV SCH ×2 (08:16→10:43)
[2018-11-01] MEDS: PERIDEX MT SCH ×2 (08:16→21:32)
[2018-11-01] MEDS: NS 1,000 ML IV SCH ×2 (08:17→09:30)
[2018-11-01] MEDS: NEXIUM IV SCH ×2 (08:31→21:33)
[2018-11-01] MEDS: CLINIMIX E 4.25%-5% SOLUTION 1,000 ML IV SCH (09:30)
--- NOTE | 2018-11-01 09:43 | GENERAL SURGERY PROGRESS NOTE ---
DATE: 11/01/2018 SUBJECTIVE: Ms. Christy is now postop day 1 after total abdominal colectomy with ileorectostomy. This was done for persistent lower GI bleeding. OBJECTIVE: General: Today she is awake and alert. Vital Signs: Heart rate is 93. Blood pressure is 138/80. Lungs: She has bilateral breath sounds. Abdomen: Her bandage is dry. Her urine output has been satisfactory. Her white count is 11,000, hemoglobin 11.6, and hematocrit 33.4. Potassium is 3.2. ASSESSMENT: She is stable after her total abdominal colectomy. PLAN: The plan is to remove her NG tube. We will reduce her IV rate. We will start her on Clinimix for nutrition. Dr. Aquino will cover the weekend. cc: MD Mayank Birmingham MD
[2018-11-01] MEDS: INVANZ 1 GM/NS 1 GM/50 ML IVPB IV SCH (13:35)
--- NOTE | 2018-11-01 22:58 | PROVIDER PROGRESS NOTE ---
Progress Note S: Patient underwent total abdominal colectomy with ileorectal anastomosis for recurrent diverticular bleeding. No acute overnight events. Patient reports abdominal soreness. No N/V/F. No flatus. O: Last Vital Signs Temp 99.8 F H 11/01/18 20:00 Pulse 106 H 11/01/18 22:32 Resp 21 11/01/18 22:32 BP 132/80 11/01/18 22:32 Pulse Ox 96 11/01/18 22:32 Height 5 ft 5 in Weight 168 lb GEN: awake, alert, NAD HEENT: anicteric, MMM NECK: supple, no jvd PULM: CTAB no wheezing ABD: midline incision c/d/i, hypoactive BS, mild TTP throughout, no rebound or guarding EXT: No cce NEURO: nonfocal LABS: 11/01/18 11/01/18 04:54 04:54 WBC 11.42 H Hgb 11.6 L Plt Count 117 L Sodium 141 Potassium 3.2 L Chloride 106 Carbon Dioxide 23 L BUN 3 L Creatinine 0.4 L Glucose 85 ASSESSMENT AND PLAN: Ms. Pau Christy is a 53-year-old woman with a history of Helicobacter pylori, peptic ulcer disease, diverticulosis, hemorrhoids, benign colonic polyps, and chronic back pain who presents with acute and persistent diverticular bleed POD#1 form total colectomy with ileorectal anastomosis. Hgb appropriately responded to 5 units pRBCs. No recurrent bleeding. Continue post-surgical management. Diet as per surgical recommendations. No further GI needs. She should follow-up with Dr. Evans upon discharge. Continue PPI. She will need urea breath test as outpatient as she was diagnosed with H pylori in 07/2017 and does not remember if she took the antibiotics. Will sign off. Please call with questions.
--- NOTE | 2018-11-01 23:03 | PROGRESS NOTE ---
DATE: 11/01/2018 SUBJECTIVE: I appreciated Dr. Aguilar's help. The patient had a near-total colectomy followed by ileocolonic anastomosis. Bleeding has been stopped and the patient has NG tube and Lenz, and some gagging/choking reflex. OBJECTIVE: On examination, temperature is 98 degrees. Vital signs are stable. On 2 L nasal cannula. Chest is clear. Heart sounds are regular. Belly is soft. Hyperactive bowel sounds. No obvious deficits. INVESTIGATIONS: CBC: White cell count 9.9, hematocrit 34, platelets 109,000. Sodium 140, potassium 3.2, chloride 106, BUN 3, creatinine 0.4. ASSESSMENT AND PLAN: 1. Status post near-total colectomy with ileocolonic anastomosis, obviously stopped the bleeding. Most likely diverticular. Follow up on pathology report. 2. Continue nasogastric tube and Lenz. 3. Out of the bed. 4. Hypokalemia. Replace the potassium. 5. Dr. Aguilar started on intravenous Clinimix. Continue on intravenous Nexium, morphine, hydromorphone for pain. 6. The patient was given imipenem prophylactic antibiotics. Down the line the patient will get some diarrhea, B12 deficiency and possible kidney stones. We will explain. I discussed all the findings to the family this morning in the intensive care unit. I spoke to the on telephone. Family is satisfactory at this time. No signs of active bleeding. We will continue to monitor over the weekend. Level of documentation 25 minutes. cc: Mayank Marcano MD
[2018-11-02] MEDS: OFIRMEV 1000 MG/ISOTONIC SOLN 1,000 MG/100 ML BOTTLE IV SCH ×4 (03:47→21:06)
[2018-11-02] MEDS: DILAUDID IV PRN ×4 (04:33→23:41)
[2018-11-02] MEDS: CLINIMIX E 4.25%-5% SOLUTION 1,000 ML IV SCH (04:34)
[2018-11-02 05:13] LABS: BASO# 0.01 X1000 (0.0-0.2); BASO% 0.1 % (0.0-0.8); EOS# 0.17 X1000 (0.0-0.7); HEMATOCRIT 31.8 % (37.0-47.0); IMM GRAN# 0.02 X1000 (0.0-0.04); IMM GRAN% 0.2 % (0.0-0.5); LYMPH# 0.97 X1000 (1.2-3.4); LYMPH% 11.6 % (20.5-51.1); MCH 29.6 PG (27-31); MCHC 34.6 g/dL (33-37); MCV 85.5 FL (81-99); MONO# 0.44 X1000 (0.11-0.59); MONO% 5.3 % (1.7-9.3); MPV 9.4 FL (7.4-10.4); NEUT# 6.77 X1000 (1.4-6.5); NEUT% 80.8 % (42.2-75.2); PLT 146 X1000 (130-400); RBC 3.72 XMIL (4.2-5.4); RDW 16.6 % (11.5-14.5); WBC 8.38 X1000 (4.8-10.8)
[2018-11-02 06:11] LABS: AGAP 10; BUN 6 mg/dL (8-22); CHLORIDE 104 mmol/L (98-107); COSMO 275; CREATININE 0.5 mg/dL (0.5-0.9); ESTIMATED GFR > 60; GLUCOSE 93 mg/dL (70-104); POTASSIUM 3.1 mmol/L (3.5-5.1); SODIUM 139 mmol/L (136-145); TCO2 25 mmol/L (25-35)
[2018-11-02 06:12] LABS: CALCIUM 7.8 mg/dL (8.8-10.2)
[2018-11-02] MEDS: POTASSIUM CHLORIDE 60 MEQ in NS 500 ML IV SCH ×2 (08:00→15:17)
[2018-11-02] MEDS: PERIDEX MT SCH ×2 (08:28→21:06)
[2018-11-02] MEDS: NS 1,000 ML IV SCH (08:29)
[2018-11-02] MEDS: NEXIUM IV SCH ×2 (08:30→21:06)
--- NOTE | 2018-11-02 12:33 | PROGRESS NOTE ---
DATE: 11/02/2018 SUBJECTIVE: Ms. Pau Christy is a 53-year-old black female, patient of Dr. Aguilar, who had a diverticular bleed. She had to undergo a total abdominal colectomy on . She is now postop day 2. She remains in our ICU but clinically she looks good. OBJECTIVE: She is awake, cooperative. She has ambulated in the ICU. She has also sat up. Her abdomen is only slightly distended. She has a midline incision which is dressed. Her heart rate is 98 to 108, blood pressure 125/88, O2 saturation is 100%. She has no work of breathing. She is afebrile. Her hematocrit has been stable since surgery. Her white blood cell count is now normal. Hematocrit is 32%. Electrolytes are within normal limits with a BUN of 6 and a creatinine of 0.5. She still has her Lenz catheter tube in place. We will plan to discontinue that tomorrow. She is getting peripheral nutrition. She is still n.p.o. except for ice chips. She has no NG tube. Her activity has been excellent. PLAN: For now, we will continue supportive care and start a diet as her bowel function returns. cc: MD Mayank Toledo MD
[2018-11-02] MEDS: INVANZ 1 GM/NS 1 GM/50 ML IVPB IV SCH (13:38)
--- NOTE | 2018-11-02 19:06 | PROGRESS NOTE ---
DATE: 11/02/2018 SUBJECTIVE: The patient is out of bed. is at bedside. Family is happy NG tube was out. Lenz is still is intact. Dr. Aquino saw the patient. No other complaints. No history of flatus. Hemodynamics were stable. PHYSICAL EXAMINATION: vital signs: Temperature is 98 degrees, pulse is 102, blood pressure is 122/88. HEENT: Within normal limits. Chest: Clear. Belly: Soft. skin: Wound looks fine. No obvious deficits. INVESTIGATIONS: White cell count 8.3, hematocrit 32, platelets 146,000. Sodium 139, potassium 3.1, chloride 104, BUN 6, creatinine 0.5. ASSESSMENT AND PLAN: 1. Postoperative day 2 near total colectomy on NPO. NG tube was out. 2. Discontinue Lenz in the morning. 3. Hemodynamics are stable. 4. Continue IV Clinimix and IV Invanz. 5. Gastrointestinal prophylaxis with intravenous Nexium. Pain is adequately controlled. Encouraged ambulation. 6. Hypokalemia. Replace the potassium. I discussed the plan of care with the family, and we will check the labs in the morning. LEVEL OF DOCUMENTATION: [25] minutes. cc: Mayank Marcano MD MTDD
[2018-11-03] MEDS: CLINIMIX E 4.25%-5% SOLUTION 1,000 ML IV SCH (01:42)
[2018-11-03] MEDS: OFIRMEV 1000 MG/ISOTONIC SOLN 1,000 MG/100 ML BOTTLE IV SCH ×5 (04:20→22:15)
[2018-11-03] MEDS: DILAUDID IV PRN ×3 (04:42→20:26)
[2018-11-03 06:23] LABS: BASO# 0.01 X1000 (0.0-0.2); BASO% 0.2 % (0.0-0.8); EOS# 0.18 X1000 (0.0-0.7); EOS% 2.7 % (0.0-10.0); HEMATOCRIT 32.1 % (37.0-47.0); HEMOGLOBIN 10.6 g/dL (12.0-16.0); LYMPH# 1.17 X1000 (1.2-3.4); LYMPH% 17.6 % (20.5-51.1); MCH 28.9 PG (27-31); MCV 87.5 FL (81-99); MONO# 0.37 X1000 (0.11-0.59); MONO% 5.6 % (1.7-9.3); MPV 9.5 FL (7.4-10.4); NEUT# 4.91 X1000 (1.4-6.5); NEUT% 73.9 % (42.2-75.2); PLT 180 X1000 (130-400); RBC 3.67 XMIL (4.2-5.4); RDW 16.6 % (11.5-14.5); WBC 6.64 X1000 (4.8-10.8)
[2018-11-03 06:49] LABS: AGAP 7; BUN 6 mg/dL (8-22); CALCIUM 7.6 mg/dL (8.8-10.2); CHLORIDE 103 mmol/L (98-107); COSMO 271; CREATININE 0.4 mg/dL (0.5-0.9); ESTIMATED GFR > 60; GLUCOSE 91 mg/dL (70-104); POTASSIUM 3.4 mmol/L (3.5-5.1); SODIUM 137 mmol/L (136-145); TCO2 27 mmol/L (25-35)
--- NOTE | 2018-11-03 08:51 | PROGRESS NOTE ---
DATE: 11/03/2018 Ms. Pau Christy now is postop day 3 from a total abdominal colectomy for a massive lower GI bleed requiring 10 units of packed red blood cells. She is doing very well in our ICU. She is even ambulating in our ICU. She is awake and cooperative. Her hematocrit remained stable at 32%. Her heart rate is 94 to 100, blood pressure 150/91, O2 saturation 98%. She is afebrile. She is still on IV antibiotics. Her white blood cell count is normal. BUN and creatinine are 6 and 0.4, her potassium is 3.4. Her abdominal midline wound is dressed. Her abdomen is mostly soft. She still has her Lenz catheter tube in place. She is receiving some peripheral nutrition. We have not started a diet because she had not had much bowel activity. PLAN: We will send her to the floor. We will begin clear liquids. We will remove her Lenz catheter tube. We will plan to stop this peripheral nutrition when this bag is infused. I spoke with her family at the bedside. cc: MD Mayank Toledo MD
[2018-11-03] MEDS: NORVASC PO SCH (09:18)
[2018-11-03] MEDS: PERIDEX MT SCH ×2 (09:18→20:29)
[2018-11-03] MEDS: NEXIUM IV SCH ×2 (09:18→20:29)
[2018-11-03] MEDS: POTASSIUM CHLORIDE 20 MEQ/SWI 20 MEQ/100 ML IVPB IV SCH ×2 (09:19→14:09)
[2018-11-03] MEDS: NS 1,000 ML IV SCH (09:19)
[2018-11-03] MEDS: KLOR-CON PO SCH (09:20)
[2018-11-03] MEDS: ZOFRAN IV PRN (11:33)
[2018-11-03] MEDS: INVANZ 1 GM/NS 1 GM/50 ML IVPB IV SCH (13:12)
--- NOTE | 2018-11-03 17:53 | PROGRESS NOTE ---
DATE: 11/03/2018 SUBJECTIVE: The patient is doing much better. NG tube was out. Lenz was out. Hyperactive bowel sounds. Eating ice chips. Dr. Aquino has seen the patient, transferred to the floor. REVIEW OF SYSTEMS: None reported. PHYSICAL EXAMINATION: Vitals: Temp 98, pulse 96. Blood pressure is stable. HEENT: Within normal limits. Neck: Supple. Chest: Clear. Heart: Sounds are regular. GI: Belly is soft, nontender. LICENSED REACTOR OPERATOR: No obvious deficits. INVESTIGATIONS: CBC: White cell count 6.6, hematocrit 32, platelets 180,000. Sodium 137, potassium 3.4, chloride 103, BUN 6, creatinine 0.4, calcium 7.6. Blood cultures were negative. ASSESSMENT AND PLAN: 1. Postoperative day 3 status post colectomy due to diverticular bleeding. Stable hematocrit. 2. Hypokalemia. Replace the potassium. 3. Clear liquid diet. 4. Out of the bed. 5. Decrease the IV fluids and Clinimix. 6. Continue on Invanz. 7. Encourage ambulation. 8. Will follow up. LEVEL OF DOCUMENTATION: 25 minutes. cc: Mayank Marcano MD
[2018-11-03] MEDS: SODIUM CHLORIDE 0.9% INJ SCH (20:29)
[2018-11-04] MEDS: ZOFRAN IV PRN ×2 (00:03→12:58)
[2018-11-04] MEDS: DILAUDID IV PRN ×2 (00:03→07:21)
[2018-11-04] MEDS: CLINIMIX E 4.25%-5% SOLUTION 1,000 ML IV SCH ×2 (00:46→21:16)
[2018-11-04] MEDS: OFIRMEV 1000 MG/ISOTONIC SOLN 1,000 MG/100 ML BOTTLE IV SCH (03:46)
[2018-11-04 07:07] LABS: AGAP 11; BUN 6 mg/dL (8-22); CHLORIDE 99 mmol/L (98-107); COSMO 270; CREATININE 0.6 mg/dL (0.5-0.9); ESTIMATED GFR > 60; GLUCOSE 76 mg/dL (70-104); POTASSIUM 3.4 mmol/L (3.5-5.1); SODIUM 137 mmol/L (136-145); TCO2 27 mmol/L (25-35)
[2018-11-04 07:12] LABS: EOS% 3.3 % (0.0-10.0); HEMATOCRIT 35.9 % (37.0-47.0); HEMOGLOBIN 11.8 g/dL (12.0-16.0); MCH 29.2 PG (27-31); MCHC 32.9 g/dL (33-37); MCV 88.9 FL (81-99); MONO% 7.8 % (1.7-9.3); MPV 9.4 FL (7.4-10.4); NEUT% 70.4 % (42.2-75.2); PLT 251 X1000 (130-400); RBC 4.04 XMIL (4.2-5.4); RDW 16.4 % (11.5-14.5); WBC 6.44 X1000 (4.8-10.8)
[2018-11-04 07:13] LABS: BASO# 0.01 X1000 (0.0-0.2); BASO% 0.2 % (0.0-0.8); EOS# 0.21 X1000 (0.0-0.7); IMM GRAN# 0.02 X1000 (0.0-0.04); IMM GRAN% 0.3 % (0.0-0.5); LYMPH# 1.16 X1000 (1.2-3.4); NEUT# 4.54 X1000 (1.4-6.5)
--- NOTE | 2018-11-04 09:40 | GENERAL SURGERY PROGRESS NOTE ---
DATE: 11/04/2018 SUBJECTIVE: She is now 4 days postop after total abdominal colectomy and ileal rectostomy. She is afebrile, heart rate 103, blood pressure 134/83. She has tolerated liquids. Her bowels have moved. Intake yesterday 2223, output 2600. As I mentioned, her bowels have moved some. Her wound looks fine. White count 6400, hemoglobin 11.8. Chemistry is fine. PLAN: The plan will be to advance her diet. We will reduce her maintenance IV fluids. cc: MD Mayank Birmingham MD
[2018-11-04] MEDS: POTASSIUM CHLORIDE 20 MEQ/SWI 20 MEQ/100 ML IVPB IV SCH ×2 (09:59→18:38)
[2018-11-04] MEDS: SODIUM CHLORIDE 0.9% INJ SCH ×2 (10:07→21:16)
[2018-11-04] MEDS: NS 1,000 ML IV SCH ×2 (10:08→21:15)
[2018-11-04] MEDS: PERIDEX MT SCH ×2 (10:08→21:15)
[2018-11-04] MEDS: NEXIUM IV SCH ×2 (10:08→21:15)
[2018-11-04] MEDS: NORVASC PO SCH (10:08)
[2018-11-04] MEDS: KLOR-CON PO SCH (10:08)
[2018-11-04] MEDS: NORCO-5 PO PRN (12:58)
[2018-11-04] MEDS: PHENERGAN IV PRN ×2 (16:15→21:41)
[2018-11-04] MEDS: SODIUM CHLORIDE 0.9% INJ PRN (16:16)
--- NOTE | 2018-11-04 22:05 | PROGRESS NOTE ---
DATE: 11/04/2018 SUBJECTIVE: Patient is doing very well. No complaints. OBJECTIVE: Vital Signs: On exam, temperature is 98. Vitals are stable. HEENT: Within normal limits. Neck: Supple. Chest: Clear. Heart: Sounds are regular. Abdomen: Belly is soft, nontender. Good bowel sounds. Neurologic: No neurological deficits. INVESTIGATIONS: CBC: White cell count 6.4, hematocrit 35.9, platelets 251,000. Sodium 137, potassium 3.4, chloride 99, BUN 6, creatinine 0.6, calcium 9.0. Blood cultures were negative. ASSESSMENT AND PLAN: 1. Status postoperative day 4 for ileorectal anastomosis. Bleeding has stopped. Continue physical therapy. 2. Hypokalemia. Replace. 3. Hypertension, on Norvasc. 4. Slowly advance the diet. 5. Patient did have 2 bowel movements. 6. Explained the long-term side effects, which include diarrhea, B12 deficiency, and calculi stones. 7. Will give sublingual B12 and calcium tablets and cholestyramine as needed. 8. Continue intravenous Nexium. 9. Antibiotics were discontinued. 10. I appreciated Dr. Aguilar. LEVEL OF DOCUMENTATION: 25 minutes. cc: Mayank Marcano MD
[2018-11-05] MEDS: PHENERGAN IV PRN ×2 (01:57→08:26)
[2018-11-05 06:16] LABS: BASO# 0.01 X1000 (0.0-0.2); BASO% 0.2 % (0.0-0.8); EOS# 0.03 X1000 (0.0-0.7); EOS% 0.5 % (0.0-10.0); HEMATOCRIT 34.4 % (37.0-47.0); HEMOGLOBIN 11.5 g/dL (12.0-16.0); IMM GRAN# 0.02 X1000 (0.0-0.04); IMM GRAN% 0.3 % (0.0-0.5); LYMPH# 0.92 X1000 (1.2-3.4); LYMPH% 15.7 % (20.5-51.1); MCH 29.1 PG (27-31); MCHC 33.4 g/dL (33-37); MCV 87.1 FL (81-99); MONO# 0.58 X1000 (0.11-0.59); MONO% 9.9 % (1.7-9.3); MPV 9.2 FL (7.4-10.4); NEUT% 73.4 % (42.2-75.2); PLT 284 X1000 (130-400); RBC 3.95 XMIL (4.2-5.4); RDW 15.7 % (11.5-14.5); WBC 5.86 X1000 (4.8-10.8)
[2018-11-05 06:37] LABS: AGAP 12; BUN 8 mg/dL (8-22); CALCIUM 8.7 mg/dL (8.8-10.2); CHLORIDE 101 mmol/L (98-107); COSMO 274; CREATININE 0.4 mg/dL (0.5-0.9); ESTIMATED GFR > 60; GLUCOSE 106 mg/dL (70-104); POTASSIUM 3.7 mmol/L (3.5-5.1); SODIUM 138 mmol/L (136-145); TCO2 25 mmol/L (25-35)
[2018-11-05] MEDS: SODIUM CHLORIDE 0.9% INJ PRN ×2 (08:26→20:08)
[2018-11-05] MEDS: SODIUM CHLORIDE 0.9% INJ SCH (10:06)
[2018-11-05] MEDS: KLOR-CON PO SCH (10:06)
[2018-11-05] MEDS: PROTONIX IV SCH ×2 (10:06→20:08)
[2018-11-05] MEDS: PERIDEX MT SCH ×2 (10:06→20:08)
[2018-11-05] MEDS: NORVASC PO SCH (10:07)
[2018-11-05] MEDS: NS 1,000 ML IV SCH (10:07)
--- NOTE | 2018-11-05 10:40 | GENERAL SURGERY PROGRESS NOTE ---
DATE: 11/05/2018 Ms. Christy is afebrile. It shows her being tachycardic. Blood pressure is 136/100. Her labs look okay. Her wound looks fine. She is tolerating solids. Her bowels are moving. Will further evaluate her rate for atrial fibrillation or supraventricular tachycardia. cc: MD Mayank Birmingham MD
[2018-11-05] MEDS: CLINIMIX E 4.25%-5% SOLUTION 1,000 ML IV SCH (13:56)
[2018-11-05] MEDS: NORCO-5 PO PRN ×2 (17:27→23:56)
--- NOTE | 2018-11-05 21:53 | PROGRESS NOTE ---
DATE: 11/05/2018 SUBJECTIVE: Patient is much better, c/o of nausea. Had 2 loose bowel movements. Kathy are intact. OBJECTIVE: Vital Signs: Temperature is 98 degrees, pulse 112, blood pressure is running high now. HEENT: Within normal limits. Chest: Clear. Heart: Sounds are regular. Abdomen: Belly is soft, nontender. Good bowel sounds. LABORATORY DATA: CBC: White cell count 5.8, hematocrit 34, platelets 284,000. SMA 7 is normal. PATHOLOGY REPORT: Significant diverticulosis. No malignancies. Submucosal lipoma on the right colon. There is a fresh bleeding, could not identify this source. Will discuss with Dr. Ko. ASSESSMENT AND PLAN: 1. Diverticular bleeding, improving. [place] are intact with no signs of infection. 2. Physical therapy. 3. Slowly advance the diet, decreasing intravenous fluids and clinimix 4. Long-term complications: Diarrhea, B12 deficiency, and kidney stones. Replace vitamin D, sublingual B12, 1 g of calcium, and blood pressure is running high. Currently, all her home medicines are on hold. Slowly titrate as she advances, and if she is stable, will discharge in the morning. LEVEL OF DOCUMENTATION: 25 minutes. cc: Mayank Marcano MD MTDD
[2018-11-06] MEDS: NORCO-5 PO PRN (04:45)
[2018-11-06 07:47] VITALS: BP 119/87
[2018-11-06] MEDS: PROTONIX IV SCH (08:26)
[2018-11-06] MEDS: SODIUM CHLORIDE 0.9% INJ SCH (08:26)
[2018-11-06] MEDS: KLOR-CON PO SCH (08:26)
[2018-11-06] MEDS: PERIDEX MT SCH (08:27)
[2018-11-06] MEDS: NORVASC PO SCH (08:27)
[2018-11-06] MEDS ORDERED: VITAMIN D PO SCH (09:00)
--- NOTE | 2018-11-07 09:45 | DISCHARGE SUMMARY ---
ADMISSION DATE: 10/24/2018 DISCHARGE DATE: 11/06/2018 DISCHARGING DIAGNOSIS: Profuse Intermittent lower gastrointestinal bleeding due to diverticular bleeding. SECONDARY DIAGNOSES: 1. Metabolic syndrome. 2. Hypertension. 3. Pes planus. 4. C5-C6 spondylosis. 5. Vitamin D deficiency. 6. History of diverticulosis. 7. Chronic lower back pain due to spondylosis and herniated disk on the right side. CONSULTS: 1. Dr. Schmitz/Dr. Evans. 2. Dr. Enzo Aguilar/Dr. Lassiter. PROCEDURES: 1. Transfusion of 10 units of packed RBCs. 2. Transfusion of 2 units of FFP. 3. Administration of 10 mg of IV vitamin K. 4. Exploratory laparotomy, near-total colectomy, followed by ileorectal anastomosis. 5. Colonoscopies x2, one by Dr. Evans, another by Dr. Schmitz, unable to locate the bleeding. PATHOLOGY: Pathology reported severe diverticulosis, including right colon with submucosa lipoma. RADIOLOGY PROCEDURES: Bleeding scan showed possible bleeding at the splenic flexure. BRIEF HISTORY: Please see the H and P that was done on 10/24/2018. In brief, she is a 53-year- old female with history of diverticulosis, previous colonoscopy last year by Dr. Evans with diverticulosis and hemorrhoids, who came in initially with back pain. The patient had outpatient MRI done. She is supposed to see the neuro/clerical support specialist. The patient was given some steroids and sulindac. In the meantime, she started having intermittent bleeding per rectum, hematochezia. Initially, hemodynamics were stable. Hematocrit 33. Seen as an outpatient by Dr. Schmitz. She continues to have bleeding, and as a result, admitted to the hospital. HOSPITAL COURSE: She was bleeding off and on for a while. All the NSAIDs were stopped. 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 She was given hematological support as needed. In the meantime, since she was bleeding, Dr. Evans did a colonoscopy. Initially, could not find any source of bleeding. She was requiring intermittent blood transfusion. Bleeding scan was positive for bleeding at splenic flexure. Dr. Schmitz went back to look a second time for an hour, and could not find any source of bleeding, and after the second colonoscopy, the patient was hemodynamically unstable after going to the bathroom, and blood pressure was dropping, heart rate was 150. CAT team was called in, transferred to the ICU. Prior to this, surgical consult was obtained with Dr. Aquino. In the meantime, the family wants to be transferred to [facility], and there were no beds available at both institutions, and family agreed to stay, and Dr. Aguilar did, on the same afternoon, exploratory laparotomy, followed by 1-stage procedure with near-total colectomy, followed by ileorectal anastomosis. Postoperative course was uneventful. Hemodynamics were stable, as well as hematocrit. She had some hypokalemia, which was replaced. NG tube was taken out. Lenz was taken out. The patient is tolerating the diet very well, ambulating very well. Pathology reports were discussed. LABORATORY DATA: CBC: White cell count 5.8, hematocrit 34, platelets 284. Sodium 138, potassium 3.7, chloride 105, BUN 8, creatinine 0.4, glucose 106. Blood cultures were negative. DISCHARGE INSTRUCTIONS: Ultracet 1 tablet every 6 hours p.r.n. pain, Os-Naveen 1 tablet p.o. b.i.d. to prevent oxalate stones, Icar-C Plus 1 tablet daily, vitamin B12 at 5000 sublingual 1 tablet daily, Flexeril 10 mg daily, will slowly resume blood pressure medicine, amlodipine 5 mg daily, Prilosec 20 p.o. b.i.d., vitamin D 50,000 once a week, potassium 10 mEq in the morning. Follow up with Dr. Aguilar next week to remove the bisi. Follow up in my office, and she also needs a furlough for work release, at least a couple of weeks, and follow up in my office next week. cc: MD Phillip Flynn MD Manish Arora, MD Robert C. Walker, MD MTDD
== END 2018-11-06 09:24 | disposition home or self-care (01) | DRG 330 ==
LOC: DIRADM 13:59 → 4N 14:20 → ICU 10-30 23:16 → 4N 11-03 12:20
PROVIDERS: ADMIT Internal Medicine; ATTEND Internal Medicine